=== PATIENT | female | born 1995 | race Caucasian/White ===

== ENCOUNTER 2019-01-30 14:53 | Emergency (ER) | payer OTHER ==
[2019-01-30] MEDS ORDERED: Ibuprofen TAB* 600 MG PO ONE (17:51)
--- NOTE | 2019-01-30 18:13 | ED ---
Upper Extremity Pain - HPI Summary HPI Summary: Patient complains of partial left thumbnail avulsion during the fall. Denies any other symptoms pain or injury. Patient has fake nails glued to originals. - History of Current Complaint Chief Complaint: EDExtremityUpper Stated Complaint: UPROOTED LEFT THUMB NAIL PER PT Time Seen by Provider: 01/30/19 17:34 Hx Obtained From: Patient Mechanism Of Injury: Fall From A Standing Position Onset/Duration: Started Hours Ago Timing: Constant Severity Initially: Moderate Severity Currently: Moderate Pain Location: Finger Character: Aching Aggravating Factor(s): Movement Associated Signs & Symptoms: Positive: Negative - Allergies/Home Medications Allergies/Adverse Reactions: Allergies Allergy/AdvReac Type Severity Reaction Status Date / Time No Known Allergies Allergy Verified 01/30/19 14:58 Home Medications: Home Medications NK [No Home Medications Reported] 01/30/19 [History Confirmed 01/30/19] PMH/Surg Hx/FS Hx/Imm Hx Endocrine/Hematology History: Denies: Hx Anticoagulant Therapy Cardiovascular History: Denies: Hx Pacemaker/ICD History: Denies: Hx Dialysis Sensory History: Denies: Hx Legally Blind Opthamlomology History: Denies: Hx Eye Prosthesis EENT History: Denies: Hx Deafness Neurological History: Denies: Hx Dementia Psychiatric History: Denies: Hx Autism Infectious Disease History: No Infectious Disease History: Denies: Traveled Outside the in Last 30 Days - [place] - Social History Alcohol Use: None Substance Use Type: Reports: None Smoking Status (MU): Light Every Day Tobacco Smoker Review of Systems Constitutional: Negative Eyes: Negative ENT: Negative Cardiovascular: Negative Respiratory: Negative Gastrointestinal: Negative Genitourinary: Negative Skin: Other Neurological: Negative Psychological: Normal All Other Systems Reviewed And Are Negative: Yes Physical Exam - Summary Physical Exam Summary: Partial nail avulsion left thumb nail. Nailbed intact. Triage Information Reviewed: Yes Vital Signs On Initial Exam: Initial Vitals Temp Pulse Resp BP Pulse Ox 98.3 F 95 16 152/102 93 01/30/19 14:55 01/30/19 14:55 01/30/19 14:55 01/30/19 14:55 01/30/19 14:55 Vital Signs Reviewed: Yes Appearance: Positive: Well-Appearing Skin: Positive: Warm Head/Face: Positive: Normal Head/Face Inspection Eyes: Positive: Normal Neck: Positive: Supple Respiratory/Lung Sounds: Positive: Clear to Auscultation Cardiovascular: Positive: Normal Abdomen Description: Positive: Nontender Musculoskeletal: Positive: Normal Neurological: Positive: Normal Psychiatric: Positive: Normal AVPU Assessment: Alert - Denae Coma Scale Best Eye Response: 4 - Spontaneous Best Motor Response: 6 - Obeys Commands Best Verbal Response: 5 - Oriented Coma Scale Total: 15 Diagnostics - Vital Signs Vital Signs Temp Pulse Resp BP Pulse Ox 01/30/19 16:48 98.2 F 80 17 139/76 100 01/30/19 14:55 98.3 F 95 16 152/102 93 - Laboratory Lab Statement: Any lab studies that have been ordered have been reviewed, and results considered in the medical decision making process. Course/Dx - Course Course Of Treatment: Patient complains of partial left thumbnail avulsion during the fall. Denies any other symptoms pain or injury. Patient has fake nails glued to originals. Physical exam:Partial nail avulsion left thumb nail. Nailbed intact. Vital signs within normal limits. Nailbed and nail intact. Nail wrapped and enclosed in a finger brace to allow regrowth. - Diagnoses Provider Diagnoses: Nail avulsion, finger Discharge - Sign-Out/Discharge Documenting (check all that apply): Patient Departure Patient Received Moderate/Deep Sedation with Procedure: No - Discharge Plan Condition: Stable Disposition: HOME Patient Education Materials: Nail Avulsion (ED) Referrals: No Primary Care Phys,NOPCP [Primary Care Provider] - Additional Instructions: Keep wound clean and dry. May wash with warm running water and soap. Keep covered and protected when not washing. Follow up with primary care. Return to the ED for any new or worsening symptoms. - Billing Disposition and Condition Condition: STABLE Disposition: Home
[2019-01-30 18:25] VITALS: BP 0/0
== END 2019-01-30 18:23 | disposition home or self-care (01) ==
LOC: ED 14:53
DX: S61.102A Unspecified open wound of left thumb with damage to nail, initial encounter (principal); W01.0XXA Fall on same level from slipping, tripping and stumbling without subsequent striking against object, initial encounter; F17.210 Nicotine dependence, cigarettes, uncomplicated
CPT/HCPCS: 99282; A9270-GY